=== PATIENT | female | born 1965 | race Caucasian/White ===

== ENCOUNTER 2017-08-06 13:28 | Inpatient (IN) ==
[2017-08-06 14:36] LABS: INR 0.9; Partial Thromboplastin Time 23.9 SECS (0-40)
[2017-08-06 14:40] LABS: Basophils # 0.1 10*3/uL (0.0-0.2); Basophils % 0.6 % (0.0-0.8); Eosinophils # 0.1 10*3/uL (0.0-0.87); Eosinophils % 1.7 % (0.00-10.9); Hematocrit 28.3 VOL% (35.7-47.0); Hemoglobin 7.6 GM/DL (12.0-16.0); Immature Granulocytes % 0.6 %; Immature Granulocytes Absolute 0.05 #; Lymphocytes # 1.6 10*3/uL (1.4-4.0); Lymphocytes % 20.8 % (21.3-54.2); Mean Corpuscular HGB Conc 26.9 GM/DL (32-36); Mean Corpuscular Hemoglobin 18 PG (27-34); Mean Corpuscular Volume 66.1 FL (87-102); Mean Platelet Volume 11.3 FL (9.6-12.0); Monocytes # 0.5 10*3/uL (0.11-0.8); Monocytes % 6.5 % (1.7-12.7); Neutrophils # 5.4 10*3/uL (1.4-7.4); Neutrophils % 69.8 % (38.7-73.9); Platelet Count 323 T/CUMM (130-400); Red Blood Count 4.28 MC/CUMM (3.8-5.5); Red Cell Distribution Width 18.5 % (9.3-17.3); White Blood Count 7.7 T/CUMM (4-12)
[2017-08-06 14:44] LABS: Albumin 3.5 G/DL (3.4-5.0); Bilirubin,Total 0.6 MG/DL (0.2-1.0); Calcium 8.4 MG/DL (8.5-10.1); Osmolality,Calculated 280.5 MOS/KG (273-304); Potassium 4.7 MMOL/L (3.5-5.1); Total Protein 6.2 G/DL (6.4-8.3)
[2017-08-06] MEDS ORDERED: FUROSEMIDE 40 MG/4 ML VIAL IV STA (15:11)
[2017-08-06] MEDS ORDERED: ALUM/MAG/SIMETH/LIDO VISC 1:1 30 ML BOTTLE PO STA (15:11)
[2017-08-06] MEDS ORDERED: ASPIRIN 325 MG TABLET PO STA (15:11)
[2017-08-06] MEDS ORDERED: ONDANSETRON 4 MG/2 ML VIAL IV STA (15:11)
[2017-08-06] MEDS ORDERED: SODIUM CHLORIDE 0.9% 1,000 ML IV PRN (17:01)
[2017-08-06] MEDS ORDERED: DOCUSATE SODIUM 100 MG CAPSULE PO PRN (17:01)
[2017-08-06] MEDS ORDERED: LACTULOSE 20 GM/30 ML UDCUP PO PRN (17:01)
[2017-08-06] MEDS ORDERED: ONDANSETRON 4 MG/2 ML VIAL IV PRN (17:01)
[2017-08-06 18:28] LABS: Apearance,Urine CLEAR (Clear); Bacteria,Urine Occasional /HPF (Few); Bilirubin,Urine Negative (Negative); Blood, Urine Negative (Negative); Glucose,Urine (UA) Negative (Negative); Ketones,Urine Negative (Negative); Nitrite,Urine Negative (Negative); Protein,Urine Negative; RBC,Urine 1 /HPF (0-4); Squamous Epithelial Cell,Urine Occasional /HPF (0-10); Urine Color Straw (Yellow); Urine Specific Gravity 1.005 (1.001-1.035); Urine Urobilinogen < 2.0 EU/DL (0.2-1.0); WBC,Urine 2 /HPF (0-6)
[2017-08-06] MEDS ORDERED: DEXTROSE 50% 25 GM/50 ML VIAL IV PRN (20:34)
[2017-08-06] MEDS ORDERED: GLUCAGON 1 MG VIAL IM PRN (20:34)
[2017-08-07] MEDS: INSULIN LISPRO 100 UNIT/ML SUBCUT SCH ×5 (01:45→22:39)
[2017-08-07] MEDS: ACETAMINOPHEN 325 MG TABLET PO PRN ×2 (07:32→22:40)
[2017-08-07 08:21] LABS: Basophils # 0.1 10*3/uL (0.0-0.2); Basophils % 0.7 % (0.0-0.8); Eosinophils # 0.2 10*3/uL (0.0-0.87); Eosinophils % 1.9 % (0.00-10.9); Hematocrit 31.1 VOL% (35.7-47.0); Hematocrit 31.3 VOL% (35.7-47.0); Hemoglobin 9.1 GM/DL (12.0-16.0); Immature Granulocytes % 0.4 %; Immature Granulocytes Absolute 0.04 #; Lymphocytes % 22.1 % (21.3-54.2); Mean Corpuscular HGB Conc 29.3 GM/DL (32-36); Mean Corpuscular Hemoglobin 20 PG (27-34); Mean Corpuscular Volume 68.4 FL (87-102); Mean Platelet Volume 11.8 FL (9.6-12.0); Monocytes # 0.5 10*3/uL (0.11-0.8); Monocytes % 5.6 % (1.7-12.7); Neutrophils # 6.4 10*3/uL (1.4-7.4); Neutrophils % 69.3 % (38.7-73.9); Platelet Count 287 T/CUMM (130-400); Red Blood Count 4.55 MC/CUMM (3.8-5.5); Red Cell Distribution Width 20.1 % (9.3-17.3); White Blood Count 9.2 T/CUMM (4-12)
[2017-08-07 08:33] LABS: Calcium 8.6 MG/DL (8.5-10.1); Osmolality,Calculated 282.3 MOS/KG (273-304); Potassium 4.3 MMOL/L (3.5-5.1)
[2017-08-07 08:37] LABS: % Iron Saturation 11.4 % (18-50); Ferritin 2.2 ng/ml (8-252)
[2017-08-07 08:47] LABS: Folate 10.9 NG/ML (5.4-24.0); Vitamin B12 267 PG/ML (211-911)
[2017-08-07] MEDS: LISINOPRIL 20 MG TABLET PO SCH (08:56)
[2017-08-07] MEDS: METOPROLOL SUCCINATE XL 50 MG TABLET PO SCH (08:56)
[2017-08-07] MEDS: LEVOTHYROXINE 112 MCG TABLET PO SCH (08:56)
[2017-08-07] MEDS: metFORMIN 500 MG TABLET PO SCH ×2 (08:56→17:16)
[2017-08-07 09:37] LABS: Sedimentation Rate-Westergren 15 MM/HR (0-30)
[2017-08-07 09:40] LABS: Hypochromasia 1+
[2017-08-07] MEDS: PANTOPRAZOLE 40 MG TABLET PO SCH (11:24)
[2017-08-07 12:12] LABS: Hemoglobin A1 (Alkaline) 98.3 % (96.5-98.5); Hemoglobin A2 (Alkaline) 1.7 % (1.5-3.5)
[2017-08-08] MEDS: LEVOTHYROXINE 112 MCG TABLET PO SCH (06:04)
[2017-08-08] MEDS: metFORMIN 500 MG TABLET PO SCH ×2 (08:34→17:21)
[2017-08-08] MEDS: LISINOPRIL 20 MG TABLET PO SCH (08:35)
[2017-08-08] MEDS: PANTOPRAZOLE 40 MG TABLET PO SCH (08:35)
[2017-08-08] MEDS: METOPROLOL SUCCINATE XL 50 MG TABLET PO SCH (08:35)
[2017-08-08] MEDS: INSULIN LISPRO 100 UNIT/ML SUBCUT SCH ×4 (08:36→22:07)
[2017-08-08] MEDS: FERROUS SULFATE 300 MG/5 ML UDCUP PO SCH ×2 (17:17→22:06)
[2017-08-09] MEDS: LEVOTHYROXINE 112 MCG TABLET PO SCH (06:40)
[2017-08-09] MEDS: FERROUS SULFATE 300 MG/5 ML UDCUP PO SCH ×3 (08:34→20:29)
[2017-08-09] MEDS: metFORMIN 500 MG TABLET PO SCH ×2 (08:34→16:09)
[2017-08-09] MEDS: METOPROLOL SUCCINATE XL 50 MG TABLET PO SCH (08:35)
[2017-08-09] MEDS: PANTOPRAZOLE 40 MG TABLET PO SCH (08:35)
[2017-08-09] MEDS: LISINOPRIL 20 MG TABLET PO SCH (08:35)
[2017-08-09] MEDS: INSULIN LISPRO 100 UNIT/ML SUBCUT SCH ×4 (08:36→20:29)
[2017-08-10] MEDS: INSULIN LISPRO 100 UNIT/ML SUBCUT SCH ×2 (08:30→12:54)
[2017-08-10] MEDS: LISINOPRIL 20 MG TABLET PO SCH (08:31)
[2017-08-10] MEDS: metFORMIN 500 MG TABLET PO SCH (08:31)
[2017-08-10] MEDS: FERROUS SULFATE 300 MG/5 ML UDCUP PO SCH (08:31)
[2017-08-10] MEDS: PANTOPRAZOLE 40 MG TABLET PO SCH (08:32)
[2017-08-10] MEDS: METOPROLOL SUCCINATE XL 50 MG TABLET PO SCH (08:32)
[2017-08-10 08:36] VITALS: BP 109/62
[2017-08-10] MEDS: LEVOTHYROXINE 112 MCG TABLET PO SCH (12:54)
== END 2017-08-10 12:54 | disposition home or self-care (01) | DRG 812 ==
LOC: N.ED 13:28 → SUATTDRO 15:45 → N.EDINP 15:45 → N.TELES 19:22
PROVIDERS: ADMIT Hospitalist; ATTEND Internal Medicine Cardiovascular Disease

== ENCOUNTER 2018-08-15 13:46 | Observation (INO) ==
[2018-08-15] MEDS ORDERED: ASPIRIN 325 MG TABLET PO STA (14:11)
[2018-08-15] MEDS ORDERED: METOPROLOL TARTRATE 5 MG/5 ML VIAL IV STA (14:17)
[2018-08-15 14:54] LABS: Basophils # 0.1 10*3/uL (0.0-0.2); Basophils % 1.1 % (0.0-0.8); Eosinophils # 0.1 10*3/uL (0.0-0.87); Eosinophils % 1.7 % (0.00-10.9); Hematocrit 47.3 VOL% (35.7-47.0); Hemoglobin 14.8 GM/DL (12.0-16.0); Immature Granulocytes % 0.3 %; Immature Granulocytes Absolute 0.02 #; Lymphocytes # 1.5 10*3/uL (1.4-4.0); Lymphocytes % 22.3 % (21.3-54.2); Mean Corpuscular HGB Conc 31.3 GM/DL (32-36); Mean Corpuscular Hemoglobin 27 PG (27-34); Mean Corpuscular Volume 86.6 FL (87-102); Mean Platelet Volume 12.2 FL (9.6-12.0); Monocytes # 0.3 10*3/uL (0.11-0.8); Monocytes % 5.2 % (1.7-12.7); Neutrophils # 4.6 10*3/uL (1.4-7.4); Neutrophils % 69.4 % (38.7-73.9); Platelet Count 219 T/CUMM (130-400); Red Blood Count 5.46 MC/CUMM (3.8-5.5); Red Cell Distribution Width 13.2 % (9.3-17.3); White Blood Count 6.6 T/CUMM (4-12)
[2018-08-15 15:03] LABS: INR 0.9; PT Patient Result 10.1 SECS; Partial Thromboplastin Time 24.3 SECS (0-40)
[2018-08-15 15:18] LABS: Albumin 3.6 G/DL (3.4-5.0); Bilirubin,Total 0.8 MG/DL (0.2-1.0); Calcium 8.7 MG/DL (8.5-10.1); Osmolality,Calculated 281.8 MOS/KG (273-304); Potassium 4.2 MMOL/L (3.5-5.1); Total Protein 6.9 G/DL (6.4-8.3)
[2018-08-15] MEDS ORDERED: GLUCAGON 1 MG VIAL IM PRN ×2 (15:43→15:59)
[2018-08-15] MEDS ORDERED: ACETAMINOPHEN 325 MG TABLET PO PRN (15:43)
[2018-08-15] MEDS ORDERED: ONDANSETRON 4 MG/2 ML VIAL IV PRN (15:43)
[2018-08-15] MEDS ORDERED: DEXTROSE 50% 25 GM/50 ML SYRINGE IV PRN (15:43)
[2018-08-15] MEDS ORDERED: DEXTROSE 50% 25 GM/50 ML VIAL IV PRN (15:59)
[2018-08-15] MEDS ORDERED: NON-FORMULARY MEDICATION (Metformin Hcl [Metformin Hcl] 1,000 MG) PO SCH (17:00)
[2018-08-15] MEDS: INSULIN REGULAR 100 UNIT/ML SUBCUT SCH ×2 (18:20→22:24)
[2018-08-16 04:09] LABS: Basophils # 0.1 10*3/uL (0.0-0.2); Basophils % 0.9 % (0.0-0.8); Eosinophils # 0.2 10*3/uL (0.0-0.87); Eosinophils % 2.7 % (0.00-10.9); Hematocrit 42.1 VOL% (35.7-47.0); Hemoglobin 13.1 GM/DL (12.0-16.0); Immature Granulocytes % 0.4 %; Immature Granulocytes Absolute 0.03 #; Lymphocytes % 28.1 % (21.3-54.2); Mean Corpuscular HGB Conc 31.1 GM/DL (32-36); Mean Corpuscular Hemoglobin 27 PG (27-34); Mean Corpuscular Volume 86.6 FL (87-102); Mean Platelet Volume 12.4 FL (9.6-12.0); Monocytes # 0.4 10*3/uL (0.11-0.8); Neutrophils # 4.3 10*3/uL (1.4-7.4); Neutrophils % 61.9 % (38.7-73.9); Platelet Count 217 T/CUMM (130-400); Red Blood Count 4.86 MC/CUMM (3.8-5.5); Red Cell Distribution Width 13.1 % (9.3-17.3)
[2018-08-16 04:45] LABS: Calcium 8.4 MG/DL (8.5-10.1); Osmolality,Calculated 282.4 MOS/KG (273-304); Potassium 3.7 MMOL/L (3.5-5.1); Risk Ratio 3.35; Thyroid Stimulating Hormone 3.92 uIU/ml (0.358-3.74)
[2018-08-16] MEDS ORDERED: LEVOTHYROXINE 112 MCG TABLET PO SCH (07:00)
[2018-08-16] MEDS: INSULIN REGULAR 100 UNIT/ML SUBCUT SCH ×3 (07:19→16:02)
[2018-08-16] MEDS ORDERED: METOPROLOL SUCCINATE XL 50 MG TABLET PO SCH (09:00)
[2018-08-16] MEDS ORDERED: PANTOPRAZOLE 40 MG TABLET PO SCH (09:00)
[2018-08-16] MEDS ORDERED: ASPIRIN EC 81 MG TABLET PO SCH (12:00)
[2018-08-16 16:00] VITALS: BP 126/73
== END 2018-08-16 16:17 | disposition home or self-care (01) ==
LOC: N.ED 13:46 → N.EDINP 13:46 → N.TELEN 16:58
PROVIDERS: ADMIT Hospitalist; ATTEND Hospitalist